=== PATIENT | female | born 1980 | race Hispanic/Latino ===

== ENCOUNTER 2017-01-07 05:34 | Emergency (ER) | payer OTHER ==
[2017-01-07 05:38] VITALS: BMI 22.7
[2017-01-07 05:52] VITALS: O2SAT 100
[2017-01-07 05:56] VITALS: TEMP 98.9
--- NOTE | 2017-01-07 05:57 | ED PDOC ---
Arrival/HPI - General Chief Complaint: Substance Abuse Time Seen by Provider: 01/07/17 05:42 Historian: EMS - History of Present Illness Narrative History of Present Illness (Text): 01/07/17 05:57 Deann Ruvalcaba is a 36 year old female, whose past medical history includes substance abuse, who presents to the Emergency department brought in by EMS for substance abuse. Patient was found sleeping on someone's stoop prior to arrival. Patient is somnolent on arrival to Emergency department and there is suspicion for possible heroin use today. Limited HPI and ROS secondary to altered mental status. Time/Duration: Other (today) Symptom Onset: Gradual Symptom Course: Unchanged Activities at Onset: Light Context: Street Past Medical History - Provider Review Nursing Documentation Reviewed: Yes - Infectious Disease Hx of Infectious Diseases: None - Psychiatric Hx Substance Use: No Family/Social History - Physician Review Nursing Documentation Reviewed: Yes Family/Social History: No Known Family HX Smoking Status: Light Smoker < 10 Cigarettes Daily Hx Alcohol Use: No Hx Substance Use: No Allergies/Home Meds Allergies/Adverse Reactions: Allergies No Known Allergies Allergy (Verified 04/12/16 14:33) Home Medications: Home Meds Medication Instructions Recorded Confirmed No Known Home Med 04/12/16 Review of Systems - Review of Systems Systems not reviewed;Unavailable: Altered Mental Status Physical Exam Vital Signs Reviewed: Yes Vital Signs Temp Pulse Resp BP Pulse Ox 01/07/17 05:34 98.9 F 79 16 94/60 L 100 Temperature: Afebrile Blood Pressure: Normal Pulse: Regular Respiratory Rate: Normal Appearance: Positive for: Well-Appearing, Comfortable Pain Distress: None Mental Status: Positive for: other (Somnolent) - Systems Exam Head: Present: Atraumatic, Normocephalic Pupils: Present: Pinpoint Extroacular Muscles: Present: EOMI Conjunctiva: Present: Normal Mouth: Present: Moist Mucous Membranes Neck: Present: Normal Range of Motion Respiratory/Chest: Present: Clear to Auscultation, Good Air Exchange. No: Respiratory Distress, Accessory Muscle Use Cardiovascular: Present: Regular Rate and Rhythm, Normal S1, S2. No: Murmurs Abdomen: Present: Normal Bowel Sounds. No: Tenderness, Distention, Peritoneal Signs Upper Extremity: Present: Normal Inspection. No: Cyanosis, Edema Lower Extremity: Present: Normal Inspection. No: Edema Neurological: Present: CN II-XII Intact Skin: Present: Warm, Dry, Normal Color. No: Rashes Psychiatric: Present: Other (Somnolent) Medical Decision Making ED Course and Treatment: 01/07/17 05:57 Impression: 36 year old female brought in for possible substance abuse. Differential Diagnosis include but are not limited to: substance abuse vs. overdose Plan: -- EKG -- Chest X-ray -- Labs, alcohol level -- Urinalysis, urine drug screen -- Narcan -- Reassess and disposition Progress Notes: 01/07/17 07:[address] García, pending labs, Chest X-ray, re-assessment, and final disposition. - Lab Interpretations Lab Results: 01/07/17 06:42 Lab Results 01/07/17 06:42: Alcohol, Quantitative < 10 01/07/17 06:42: Salicylates < 1 L, Acetaminophen < 10.0 L 01/07/17 06:42: Sodium 140, Potassium 4.3, Chloride 104, Carbon Dioxide 25, Anion Gap 15, BUN 14, Creatinine 0.7, Est GFR ( Amer) > 60, Est GFR (Non- Af Amer) > 60, Random Glucose 86, Calcium 9.2, Total Bilirubin 0.6, AST 47 H, ALT 45, Alkaline Phosphatase 70, Total Protein 8.7 H, Albumin 4.5, Globulin 4.2 , Albumin/Globulin Ratio 1.1 - RAD Interpretation Radiology Orders: 01/07/17 06:18 CHEST PORTABLE [RAD] Stat - Medication Orders Current Medication Orders: Discontinued Medications Sodium Chloride (Sodium Chloride 0.9%) 1,000 mls @ 999 mls/hr IV .Q1H1M STA Stop: 01/07/17 07:10 Naloxone HCl (Narcan) Confirm Administered Dose 0.8 mg .ROUTE .STK-MED ONE Stop: 01/07/17 05:59 Last Admin: 01/07/17 06:02 Dose: 0.8 mg Naloxone HCl (Narcan) 0.8 mg IM STAT STA Stop: 01/07/17 06:01 Last Admin: 01/07/17 06:58 Dose: Naloxone HCl (Narcan) 0.8 mg IVP STAT STA Stop: 01/07/17 06:55 Last Admin: 01/07/17 06:57 Dose: 0.8 mg - Scribe Statement The provider has reviewed the documentation as recorded by the Sumiibconnie Easton All medical record entries made by the Sumiibconnie were at my direction and personally dictated by me. I have reviewed the chart and agree that the record accurately reflects my personal performance of the history, physical exam, medical decision making, and the department course for this patient. I have also personally directed, reviewed, and agree with the discharge instructions and disposition. Disposition/Present on Arrival - Present on Arrival Any Indicators Present on Arrival: No History of DVT/PE: No History of Uncontrolled Diabetes: No Urinary Catheter: No History of Decub. Ulcer: No History Surgical Site Infection Following: None - Disposition Have Diagnosis and Disposition been Completed?: No Diagnosis: Heroin abuse Disposition Time: 07:00 Condition: STABLE Referrals: Ricky Garcia MD [Primary Care Provider] - Follow up with primary
[2017-01-07] MEDS ORDERED: Naloxone 0.4 mg/ml Inj (Adult) ONE (05:58)
[2017-01-07] MEDS ORDERED: Naloxone 0.4 mg/ml Inj (Adult) IM STA (06:00)
[2017-01-07] MEDS ORDERED: Sodium Chloride 0.9% 1,000 ML IV STA (06:10)
[2017-01-07 06:44] LABS: ADD MANUAL DIFF? NO
[2017-01-07] MEDS ORDERED: Naloxone 0.4 mg/ml Inj (Adult) IVP STA (06:54)
[2017-01-07 07:02] LABS: BASO # 0.01 K/mm3 (0.0-2.0); BASO % 0.2 % (0.0-3.0); EOS # 0.2 (0.0-0.7); EOS % 2.7 % (1.5-5.0); GRAN # 3.86 (1.4-6.5); GRAN % 66.2 % (50.0-68.0); HEMATOCRIT 34.6 % (36.0-48.0); LYMPH # 1.5 (1.2-3.4); LYMPH % 25.6 % (22.0-35.0); MEAN CORPUSCULAR HGB CONC 34.1 g/dl (31.0-37.0); MEAN PLATELET VOLUME 10.4 fl (7.0-11.0); MONO # 0.3 (0.1-0.6); MONO % 5.3 % (1.0-6.0); PLATELET COUNT 153 10^3/uL (120.0-450.0); WHITE BLOOD COUNT 5.8 10^3/ul (4.5-11.0)
[2017-01-07 07:03] LABS: ALB/GLOB RATIO 1.1 (1.1-1.8); ALKALINE PHOSPHATASE 70 U/L (38-133); ALT/SGPT 45 U/L (7-56); AST/SGOT 47 U/L (15-39); BILIRUBIN,TOTAL 0.6 mg/dL (0.2-1.3); BLOOD UREA NITROGEN 14 mg/dL (7-21); CALCIUM 9.2 mg/dL (8.4-10.5); CARBON DIOXIDE 25 mmol/L (21-33); CHLORIDE 104 mmol/L (98-107); GFR AFRICAN-AMERICAN > 60; GLUCOSE,RANDOM 86 mg/dL (70-110); POTASSIUM 4.3 mmol/L (3.6-5.0); SODIUM 140 mmol/L (132-148); TOTAL PROTEIN 8.7 g/dL (5.8-8.3)
[2017-01-07 07:37] LABS: PH,URINE 5.5 (4.7-8.0); URINE BILIRUBIN NEGATIVE (NEGATIVE); URINE BLOOD LARGE (NEGATIVE); URINE GLUCOSE (UA) NEGATIVE (NEGATIVE); URINE KETONE 15 mg/dL (NEGATIVE); URINE LEUKOCYTE ESTERASE NEGATIVE Leu/uL (NEGATIVE); URINE PROTEIN TRACE mg/dL (<30 mg/dL)
[2017-01-07 08:00] LABS: URINE APPEARANCE SL CLOUDY (CLEAR); URINE COLOR YELLOW (YELLOW)
[2017-01-07 08:26] LABS: URINE BACTERIA MOD (NEG); URINE EPITHELIAL CELLS 0 - 2 /hpf (0-5); URINE RBC TNTC /hpf (0-2); URINE WBC 0 - 2 /hpf (0-6)
--- NOTE | 2017-01-07 10:26 | ED PDOC ---
Physical Exam Vital Signs Reviewed: Yes Vital Signs Temp Pulse Resp BP Pulse Ox 01/07/17 09:56 114/79 100 01/07/17 09:15 80 16 97/61 L 100 01/07/17 05:34 98.9 F 79 16 94/60 L 100 Temperature: Afebrile Blood Pressure: Hypotensive Pulse: Regular Respiratory Rate: Normal Appearance: Positive for: Well-Appearing, Non-Toxic, Comfortable Pain Distress: None Medical Decision Making ED Course and Treatment: 01/07/17 07:00 Case signed out to me from overnight by Dr. Panda, pending imaging, lab work, reevaluation and disposition. The patient is a 36 year old female who was brought into the emergency department earlier this morning for substance abuse. Patient was found sleeping on someone's stop. On reevaluation, the patient is resting comfortably. 01/07/17 09:15 On reevaluation, the patient vital signs are stable but patient remain slightly hypotensive. 01/07/17 09:56 On reevaluation, the patient vital signs are stable and all within normal limits. 01/07/17 11:40 Chest X-ray: Creator : Jose Luis Santiago MD COMPARISON: None available. FINDINGS: LUNGS: Clear. PLEURA: No pneumothorax or pleural fluid seen. CARDIOVASCULAR: Normal. OSSEOUS STRUCTURES: No significant abnormalities. VISUALIZED UPPER ABDOMEN: Normal. OTHER FINDINGS: None. IMPRESSION: No active disease. 01/07/17 12:27 Patient improved. AAOx3. NAD. States that she used pills and heroine IV. Denies any SI or HI. No delusions or hallucinations. She denies any trauma or assault. She wants to go home and feels safe going home. She is walking with a steady gait and has no slurred speech. She is medically cleared for discharge. She was referred to a detox center and will try to follow up there. - Lab Interpretations Lab Results: 01/07/17 06:42 01/07/17 06:42 Lab Results 01/07/17 07:31: Urine Opiates Screen Positive H, Urine Methadone Screen Negative , Ur Barbiturates Screen Negative, Ur Phencyclidine Scrn Negative, Ur Amphetamines Screen Negative, U Benzodiazepines Scrn Positive H, U Oth Cocaine Metabols Positive H, U Cannabinoids Screen Negative 01/07/17 07:31: Urine Color Yellow, Urine Appearance Sl cloudy, Urine pH 5.5, Ur Specific [place] >= 1.030, Urine Protein Trace H, Urine Glucose (UA) Negative , Urine Ketones 15 H, Urine Blood Large H, Urine Nitrate Positive H, Urine Bilirubin Negative, Urine Urobilinogen 1.0 H, Ur Leukocyte Esterase Negative, Urine RBC Tntc, Urine WBC 0 - 2, Ur Epithelial Cells 0 - 2, Urine Bacteria Mod 01/07/17 06:42: Alcohol, Quantitative < 10 01/07/17 06:42: Salicylates < 1 L, Acetaminophen < 10.0 L 01/07/17 06:42: Sodium 140, Potassium 4.3, Chloride 104, Carbon Dioxide 25, Anion Gap 15, BUN 14, Creatinine 0.7, Est GFR ( Amer) > 60, Est GFR (Non- Af Amer) > 60, Random Glucose 86, Calcium 9.2, Total Bilirubin 0.6, AST 47 H, ALT 45, Alkaline Phosphatase 70, Total Protein 8.7 H, Albumin 4.5, Globulin 4.2 , Albumin/Globulin Ratio 1.1 01/07/17 06:42: WBC 5.8, RBC 4.07, Hgb 11.8 L, Hct 34.6 L, MCV 85.0, MCH 29.0, MCHC 34.1, RDW 14.0, Plt Count 153, MPV 10.4, Gran % 66.2, Lymph % (Auto) 25.6, [place] % (Auto) 5.3, Eos % (Auto) 2.7, Baso % (Auto) 0.2, Gran # 3.86, Lymph # 1.5 , [place] # 0.3, Eos # 0.2, Baso # 0.01 I have reviewed the lab results: Yes - RAD Interpretation Radiology Orders: 01/07/17 06:18 CHEST PORTABLE [RAD] Stat - Medication Orders Current Medication Orders: Discontinued Medications Sodium Chloride (Sodium Chloride 0.9%) 1,000 mls @ 999 mls/hr IV .Q1H1M STA Stop: 01/07/17 07:10 Last Admin: 01/07/17 07:32 Dose: 999 mls/hr Naloxone HCl (Narcan) Confirm Administered Dose 0.8 mg .ROUTE .STK-MED ONE Stop: 01/07/17 05:59 Last Admin: 01/07/17 06:02 Dose: 0.8 mg Naloxone HCl (Narcan) 0.8 mg IM STAT STA Stop: 01/07/17 06:01 Last Admin: 01/07/17 06:58 Dose: Naloxone HCl (Narcan) 0.8 mg IVP STAT STA Stop: 01/07/17 06:55 Last Admin: 01/07/17 06:57 Dose: 0.8 mg - Scribe Statement The provider has reviewed the documentation as recorded by the Sendy Greenwood Provider Scribe Attestation: All medical record entries made by the Sendy were at my direction and personally dictated by me. I have reviewed the chart and agree that the record accurately reflects my personal performance of the history, physical exam, medical decision making, and the department course for this patient. I have also personally directed, reviewed, and agree with the discharge instructions and disposition. Disposition/Present on Arrival - Present on Arrival Any Indicators Present on Arrival: No History of DVT/PE: No History of Uncontrolled Diabetes: No Urinary Catheter: No History of Decub. Ulcer: No History Surgical Site Infection Following: None - Disposition Have Diagnosis and Disposition been Completed?: Yes Diagnosis: Heroin abuse Disposition: HOME/ ROUTINE Disposition Time: 12:28 Patient Plan: Discharge Patient Problems: Current Active Problems Problem Status Onset Heroin abuse Acute Condition: IMPROVED Discharge Instructions (ExitCare): Narcotic Abuse (ED) Additional Instructions: Ms Ruvalcaba, thank you for letting us take care of you today. Your provider was Dr. García. You were treated for Opiate Abuse. The emergency medical care you received today was directed at your acute symptoms. If you were prescribed any medication, please fill it and take as directed. It may take several days for your symptoms to resolve. Return to the Emergency Department if your symptoms worsen, do not improve, or if you have any other problems. Please follow up with a detox center and refrain from using drugs. Please contact your doctor or call one of the physicians/clinics you have been referred to that are listed on the Patient Visit Information form that is included in your discharge packet. Bring any paperwork you were given at discharge with you along with any medications you are taking to your follow up visit. Our treatment cannot replace ongoing medical care by a primary care provider (PCP) outside of the emergency department. Thank you for allowing the [facility] team to be part of your care today. If you had an X-Ray or CT scan: A Radiologist will review the ED reading if any change in treatment is needed we will contact you. If you had a blood, urine, or wound culture: It will take several days for the results, if any change in treatment is needed we will contact you. If you had an STI test: It will take 48 hours for the results. Please call after 1 week if you have not heard back. Referrals: Ricky Garcia MD [Primary Care Provider] - Follow up with primary Forms: WORK NOTE
--- NOTE | 2017-01-07 11:40 | RAD ---
PROCEDURE: CHEST RADIOGRAPH, 1 VIEW HISTORY: possible OD COMPARISON: None available. FINDINGS: LUNGS: Clear. PLEURA: No pneumothorax or pleural fluid seen. CARDIOVASCULAR: Normal. OSSEOUS STRUCTURES: No significant abnormalities. VISUALIZED UPPER ABDOMEN: Normal. OTHER FINDINGS: None. IMPRESSION: No active disease.
[2017-01-07 12:42] VITALS: BP 116/72; PULSE 72; RESP 18
== END 2017-01-07 12:42 | disposition home or self-care (01) ==
LOC: ED 05:34
DX: F11.10 Opioid abuse, uncomplicated (principal)
CPT/HCPCS: 71010; 80053; 80320; 80324; 80329; 80345; 80346; 80349; 80353; 80358; 80361; 81001; 83992; 85025; 87086; 87181; 96361; 96374; 99284; J2310; J7040

== ENCOUNTER 2017-10-08 07:52 | Emergency (ER) | payer MEDICAID, OTHER ==
--- NOTE | 2017-10-08 08:26 | ED PDOC ---
Arrival/HPI - General Time Seen by Provider: 10/08/17 08:26 Historian: Patient - History of Present Illness Narrative History of Present Illness (Text): 10/08/17 08:26 37 year old female, whose past medical history includes substance abuse, presents to the emergency department complaining of abscess to the right cheek that began few days ago. Patient states she squeezed the abscess yesterday to drain, but it began draining green/yellow pus color. Patient reports pain and swelling to the right check, but denies any fever, chills, chest pain, shortness of breath, nausea, vomiting, diarrhea, urinary symptoms, back pain, neck pain, headache, dizziness, or any other complaints. PMD: Dr. Veliz Time/Duration: 24 hours Symptom Onset: Gradual Symptom Course: Worsening Activities at Onset: Light Context: Home Past Medical History - Provider Review Nursing Documentation Reviewed: Yes - Infectious Disease Hx of Infectious Diseases: None - Psychiatric Hx Substance Use: No Family/Social History - Physician Review Nursing Documentation Reviewed: Yes Family/Social History: No Known Family HX Smoking Status: Light Smoker < 10 Cigarettes Daily Hx Alcohol Use: No Hx Substance Use: No Allergies/Home Meds Allergies/Adverse Reactions: Allergies No Known Allergies Allergy (Verified 04/12/16 14:33) Review of Systems - Physician Review All systems were reviewed & negative as marked: Yes - Review of Systems Constitutional: absent: Fevers, Other (Chills) Respiratory: absent: SOB Cardiovascular: absent: Chest Pain Gastrointestinal: absent: Diarrhea, Nausea, Vomiting Genitourinary Female: absent: Dysuria, Frequency, Hematuria Musculoskeletal: absent: Back Pain, Neck Pain Skin: Abscess (to the right cheek ) Neurological: absent: Headache, Dizziness Physical Exam Vital Signs Reviewed: Yes Vital Signs Temp Pulse Resp BP Pulse Ox 10/08/17 08:14 97.7 F 89 22 109/69 97 Temperature: Afebrile Blood Pressure: Normal Pulse: Regular Respiratory Rate: Normal Appearance: Positive for: Well-Appearing, Non-Toxic, Comfortable Pain Distress: None Mental Status: Positive for: Alert and Oriented X 3 - Systems Exam Head: Present: Atraumatic, Normocephalic Pupils: Present: PERRL Extroacular Muscles: Present: EOMI Conjunctiva: Present: Normal Mouth: Present: Moist Mucous Membranes Neck: Present: Normal Range of Motion Respiratory/Chest: Present: Clear to Auscultation, Good Air Exchange. No: Respiratory Distress, Accessory Muscle Use Cardiovascular: Present: Regular Rate and Rhythm, Normal S1, S2. No: Murmurs Neurological: Present: GCS=15, CN II-XII Intact, Speech Normal Skin: Present: Warm, Dry, Normal Color, Abscess (1cm Indurated abscess with crusting on the top to the right cheek.). No: Rashes Psychiatric: Present: Alert, Oriented x 3, Normal Insight, Normal Concentration Medical Decision Making ED Course and Treatment: 10/08/17 08:26 Impression: 37 year old female presents complaining of abscess to the right cheek that began few days ago. Plan: -- Reassess and disposition Progress Notes: - Scribe Statement The provider has reviewed the documentation as recorded by the Sendy Singletary Provider Scribe Attestation: All medical record entries made by the Scribe were at my direction and personally dictated by me. I have reviewed the chart and agree that the record accurately reflects my personal performance of the history, physical exam, medical decision making, and the department course for this patient. I have also personally directed, reviewed, and agree with the discharge instructions and disposition. Disposition/Present on Arrival - Present on Arrival Any Indicators Present on Arrival: No History of DVT/PE: No History of Uncontrolled Diabetes: No Urinary Catheter: No History Surgical Site Infection Following: None - Disposition Have Diagnosis and Disposition been Completed?: Yes Diagnosis: Facial abscess Disposition: HOME/ ROUTINE Disposition Time: 08:25 Condition: GOOD Discharge Instructions (ExitCare): Skin Abscess Additional Instructions: Thank you for letting us take care of you today. The emergency medical care you received today was directed at your acute symptoms. If you were prescribed any medication, please fill it and take as directed. It may take several days for your symptoms to resolve. Return to the Emergency Department if your symptoms worsen, do not improve, or if you have any other problems. Please contact your doctor or call one of the physicians/clinics you have been referred to that are listed on the Patient Visit Information form that is included in your discharge packet. Bring any paperwork you were given at discharge with you along with any medications you are taking to your follow up visit. Our treatment cannot replace ongoing medical care by a primary care provider (PCP) outside of the emergency department. Thank you for allowing the [facility] team to be part of your care today. Apply warm packs to the area as many times as you can throughout the day. Follow up with your doctor or our clinic in 2 days for re-evaluation and further management. Prescriptions: Cephalexin [cephalexin] 500 mg PO QID #28 cap Sulfamethoxazole/Trimethoprim [Bactrim DS 800 mg-160 mg] 1 tab PO BID #14 tab Referrals: [facility] [Outside] - Follow up with primary [facility] [Outside] - Follow up with primary Forms: [employer] (Bahraini)
[2017-10-08 08:32] VITALS: BP 109/69; PULSE 89; RESP 22; TEMP 97.7; O2SAT 97; BMI 20.3
== END 2017-10-08 08:54 | disposition home or self-care (01) ==
LOC: ED 07:52
DX: L02.01 Cutaneous abscess of face (principal); F17.210 Nicotine dependence, cigarettes, uncomplicated

== ENCOUNTER 2017-12-21 11:28 | Emergency (ER) | payer MEDICAID, OTHER ==
[2017-12-21 11:28] VITALS: BMI 20.3
[2017-12-21] MEDS ORDERED: Naloxone 0.4 mg/ml Inj (Adult) IM STA (12:05)
[2017-12-21] MEDS ORDERED: Naloxone HCl 2mg/2ml syr NAS ONE (12:06)
--- NOTE | 2017-12-21 12:45 | ED PDOC ---
Arrival/HPI - History of Present Illness Time/Duration: Prior to Arrival - General Chief Complaint: Substance Abuse Time Seen by Provider: 12/21/17 11:33 - History of Present Illness Narrative History of Present Illness (Text): 12/21/17 12:44 Patient with a history of 18 years heroin abuse was found by EMS with needle in hand and unresponsive. Patient was given intranasal narcan on the field which aroused the patient. Patient was brought to ED. (Johnny Cárdenas) Past Medical History - Provider Review Nursing Documentation Reviewed: Yes - Infectious Disease Hx of Infectious Diseases: None - Psychiatric Hx Substance Use: No Family/Social History - Physician Review Nursing Documentation Reviewed: Yes Family/Social History: Other (non-contributory) Smoking Status: Light Smoker < 10 Cigarettes Daily Hx Alcohol Use: No Hx Substance Use: No Allergies/Home Meds Allergies/Adverse Reactions: Allergies No Known Allergies Allergy (Verified 12/21/17 11:57) Home Medications: Home Meds Medication Instructions Recorded Confirmed No Known Home Med 12/21/17 12/21/17 Review of Systems - Review of Systems Systems not reviewed;Unavailable: Uncooperative Physical Exam - Physical Exam Physical Exam Limitations: Uncooperative Vital Signs Temp Pulse Resp BP Pulse Ox 12/21/17 13:18 98.1 F 81 19 113/79 99 12/21/17 12:00 98.0 F 79 19 113/80 99 Medical Decision Making Re-evaluation Time: 13:12 ED Course and Treatment: Patient Seen With Resident: In agreement with resident note which contains more details about the patient. Patient was seen and evaluated with resident. Came up with plan and treatment together. A 37 year old female with history of heroine abuse for 18 years, was brought in by EMS to the emergency department for unresponsiveness. Patient was found by her uncle with unresponsiveness and shallow respiration, who called 911. Patient with pulse ox of 90%. Patient was found with syringe in hand. Was given 2 mg of Narcan intranasally. Patient woke up and has been defiant and argumentative. Patient is awake, talking and walking. Brought in by police. Leaving Against Medical Advice (AMA): The patient is choosing to leave against medical advice. I have personally explained to the patient that choosing to do so may result in permanent bodily harm or . I have discussed at great length that without further evaluation and monitoring there may be unforeseen circumstances and/or deterioration causing permanent bodily harm or as a result of their choice. The patient is alert, oriented, and shows the mental capacity to make clear decisions regarding the patients health care at this time. The patient continues to wish to leave against medical advice. The patient has been advised that they should return to the emergency room immediately if they change their mind at any time, or if their condition begins to change or worsen in any way. (Jasper Shoemaker) 12/21/17 13:50 Within 15 minutes, Narcan began wearing off and patient was administered a 2mg dose of narcan. Within 5 minutes of second dose patient attempted to leave the ED. Discussed with patient's significant other regarding situation, Pat the significant other did not want to pick patient up stating she wouldn't be safe at this moment. Patient insisted however it was discussed with patient that she would be a threat to herself if she were to leave. Also discussed with patient she would have to stay at least one hour after second narcan dose before leaving AMA. Once the hour had passed, patient insisted on leaving, was explained the consequences of leaving AMA including infection and . Patient then signed out AMA. (Johnny Cárdenas) - Medication Orders Current Medication Orders: Discontinued Medications Naloxone HCl (Narcan 2mg/2ml) 2 mg LORENA ONCE ONE Stop: 12/21/17 12:07 Last Admin: 12/21/17 12:18 Dose: 2 mg Disposition/Present on Arrival - Present on Arrival Any Indicators Present on Arrival: No History of DVT/PE: No History of Uncontrolled Diabetes: No Urinary Catheter: No History of Decub. Ulcer: No History Surgical Site Infection Following: None - Disposition Have Diagnosis and Disposition been Completed?: Yes Disposition Time: 13:12 - Disposition Diagnosis: Drug abuse Disposition: AGAINST MEDICAL ADVICE Condition: GUARDED Forms: [employer] (Sinhala)
[2017-12-21 13:24] VITALS: RESP 19; O2SAT 99
[2017-12-21 13:26] VITALS: BP 113/79; PULSE 81; TEMP 98.1
== END 2017-12-21 13:18 | disposition left against medical advice (07) ==
LOC: ED 11:28
DX: F19.10 Other psychoactive substance abuse, uncomplicated (principal)